=== PATIENT | male | born 1935 | race Caucasian/White ===

== ENCOUNTER → 2017-04-24 | Outpatient (CLI) | payer MEDICARE ==
[~2017-04-24] MED LIST: ASPI-621 PO; CARV12.52 PO; CHOL-29 PO; DABI150C PO; DIGO125T PO; FOLI0.8T2 PO; GLUC500T11 PO; OLME40TA12 PO; SIMV20TA3 PO
== END | disposition home or self-care (01) ==
LOC: CFH 12:44 → EDSTATUS 13:00
PROVIDERS: ATTEND Internal Medicine Cardiovascular Disease
DX: I35.2 Nonrheumatic aortic (valve) stenosis with insufficiency (principal); I48.91 Unspecified atrial fibrillation; I10 Essential (primary) hypertension
CPT/HCPCS: 93306

== ENCOUNTER → 2017-06-01 | Outpatient (CLI) | payer MEDICARE ==
[~2017-06-01] MED LIST changes: +REGADENOSON 0.4 MG/5 ML SYRINGE ONE
== END | disposition home or self-care (01) ==
LOC: CFH 07:55
PROVIDERS: ATTEND Internal Medicine Cardiovascular Disease
DX: I42.0 Dilated cardiomyopathy (principal); I47.2 Ventricular tachycardia; I25.2 Old myocardial infarction; I10 Essential (primary) hypertension; I25.10 Atherosclerotic heart disease of native coronary artery without angina pectoris
CPT/HCPCS: 78452; 93017; A9502; J2785

== ENCOUNTER → 2018-09-09 | Outpatient (CLI) | payer MEDICARE ==
[~2018-09-09] MED LIST changes: -ASPI-621 PO; +ASPI81TA45 PO; -REGADENOSON 0.4 MG/5 ML SYRINGE ONE
== END | disposition home or self-care (01) ==
LOC: CVU 07:36
PROVIDERS: ATTEND Internal Medicine Cardiovascular Disease
DX: I08.8 Other rheumatic multiple valve diseases (principal); I42.0 Dilated cardiomyopathy; I48.0 Paroxysmal atrial fibrillation; I10 Essential (primary) hypertension
CPT/HCPCS: 93306

== ENCOUNTER 2019-07-01 12:45 | Outpatient (CLI) | payer MEDICARE ==
[~2019-07-01 12:45] MED LIST changes: -DIGO125T PO; +DIGO125T85 PO; +SIMV20TA19 PO; -SIMV20TA3 PO
== END 2019-07-01 23:59 | disposition home or self-care (01) ==
LOC: CFH 12:45
PROVIDERS: ATTEND Internal Medicine Cardiovascular Disease
DX: I08.8 Other rheumatic multiple valve diseases (principal); I42.0 Dilated cardiomyopathy; I10 Essential (primary) hypertension
CPT/HCPCS: 93306

== ENCOUNTER → 2019-10-07 | Outpatient (CLI) | payer MEDICARE, OTHER ==
[~2019-10-07] MED LIST changes: +CARV3.122 PO; +FURO-93 PO; +SACU1TAB7 PO; +potassium OTC PO; +vitamin c PO
== END | disposition home or self-care (01) ==
LOC: CFH 10:12
PROVIDERS: ATTEND Internal Medicine Cardiovascular Disease
DX: Z01.810 Encounter for preprocedural cardiovascular examination (principal); I08.3 Combined rheumatic disorders of mitral, aortic and tricuspid valves; R06.02 Shortness of breath; I65.29 Occlusion and stenosis of unspecified carotid artery
CPT/HCPCS: 93306

== ENCOUNTER → 2020-01-01 | Outpatient (CLI) | payer MEDICARE, OTHER | END | disposition home or self-care (01) | LOC: CFH 09:02 | PROVIDERS: ATTEND Internal Medicine Cardiovascular Disease | DX: I08.3 Combined rheumatic disorders of mitral, aortic and tricuspid valves (principal); I11.0 Hypertensive heart disease with heart failure; I50.22 Chronic systolic (congestive) heart failure | CPT/HCPCS: 93306 ==

== ENCOUNTER 2020-02-16 09:00 | Inpatient (IN) | payer MEDICARE, OTHER ==
[~2020-02-16] VITALS: Ht 185.4 cm; Wt 91.8 kg
[2020-02-16 09:38] VITALS: BP 107/73
[2020-02-16] MEDS ORDERED: FURO40TA6 PO (10:13)
[2020-02-16] MEDS: CARVEDILOL 3.125 MG TABLET PO SCH ×2 (13:00→22:40)
[2020-02-16 13:05] VITALS: BP 106/78
[2020-02-16 13:40] LABS: ANION GAP 6 mmol/L (5-15); CHLORIDE 108 mmol/L (98-107)
[2020-02-16 13:45] LABS: CHOL/HDL RATIO 2.5; CHOLESTEROL, TOTAL 137 mg/dL (140-239); CREATININE 1.41 mg/dL (0.7-1.3); FREE T4 (FREE THYROXINE) 1.06 ng/dL (0.76-1.46); HDL CHOL % 40 % (26-37); HDL CHOLESTEROL (DIRECT) 55 mg/dL (40-60); LDL CHOLESTEROL,CALCULATED 70 mg/dL (54-169); LDL/HDL RATIO 1.3 (0.5-3.0); TRIGLYCERIDES 62 mg/dL (50-200); TROPONIN I < 0.015 ng/mL (0.000-0.045); VLDL CHOLESTEROL 12 mg/dL (0-25)
[2020-02-16] MEDS ORDERED: AMIODARONE 200 MG TABLET PO SCH (16:00)
[2020-02-16] MEDS: AMIODARONE 200 MG TABLET PO SCH ×2 (17:28→22:41)
[2020-02-16 18:42] LABS: TROPONIN I < 0.015 ng/mL (0.000-0.045)
[2020-02-16 20:42] VITALS: BP 99/62
[2020-02-16] MEDS: SIMVASTATIN 20 MG TABLET PO SCH (22:40)
[2020-02-16] MEDS: DABIGATRAN 150 MG CAPSULE PO SCH (22:41)
[2020-02-16] MEDS: SACUBITRIL/VALSARTAN 24MG-26MG TAB PO SCH (22:41)
[2020-02-17 00:43] LABS: TROPONIN I < 0.015 ng/mL (0.000-0.045)
[2020-02-17 01:07] VITALS: BP 93/56
[2020-02-17] MEDS: CARVEDILOL 3.125 MG TABLET PO SCH ×2 (05:46→17:11)
[2020-02-17] MEDS: ASPIRIN 81 MG TABLET EC PO SCH (05:49)
[2020-02-17 07:13] VITALS: BP 91/56
[2020-02-17] MEDS: AMIODARONE 200 MG TABLET PO SCH ×3 (10:03→22:18)
[2020-02-17] MEDS: SACUBITRIL/VALSARTAN 24MG-26MG TAB PO SCH ×2 (10:03→22:18)
[2020-02-17] MEDS: FUROSEMIDE 40 MG TABLET PO SCH (10:04)
[2020-02-17] MEDS: DABIGATRAN 150 MG CAPSULE PO SCH ×2 (10:04→22:17)
[2020-02-17] MEDS: FOLIC ACID 1 MG TABLET PO SCH (10:04)
[2020-02-17 13:50] VITALS: BP 96/64
[2020-02-17 19:12] VITALS: BP 91/59
[2020-02-17] MEDS: SIMVASTATIN 20 MG TABLET PO SCH (22:18)
[2020-02-18 00:33] VITALS: BP 95/65
[2020-02-18] MEDS: ASPIRIN 81 MG TABLET EC PO SCH (06:35)
[2020-02-18] MEDS: CARVEDILOL 3.125 MG TABLET PO SCH (06:35)
[2020-02-18 07:08] VITALS: BP 91/61
[2020-02-18] MEDS ORDERED: AMIO200T42 PO (08:46)
[2020-02-18] MEDS: SACUBITRIL/VALSARTAN 24MG-26MG TAB PO SCH (09:36)
[2020-02-18] MEDS: FUROSEMIDE 40 MG TABLET PO SCH (09:36)
[2020-02-18] MEDS: DABIGATRAN 150 MG CAPSULE PO SCH (09:36)
[2020-02-18] MEDS: AMIODARONE 200 MG TABLET PO SCH (09:37)
[2020-02-18] MEDS: FOLIC ACID 1 MG TABLET PO SCH (09:37)
== END 2020-02-18 11:44 | disposition home or self-care (01) | DRG 309 ==
LOC: 5SO 09:18 → DCLOUNGE 02-18 11:38
PROVIDERS: ADMIT Internal Medicine Cardiovascular Disease; ATTEND Internal Medicine Cardiovascular Disease
DX: I48.0 Paroxysmal atrial fibrillation (principal); I50.22 Chronic systolic (congestive) heart failure; I47.2 Ventricular tachycardia; I42.8 Other cardiomyopathies; I34.0 Nonrheumatic mitral (valve) insufficiency; I47.1 Supraventricular tachycardia; E78.5 Hyperlipidemia, unspecified; I49.3 Ventricular premature depolarization; Z79.01 Long term (current) use of anticoagulants; Z87.891 Personal history of nicotine dependence; Z95.4 Presence of other heart-valve replacement; Z79.899 Other long term (current) drug therapy
CPT/HCPCS: 36415; 71046; 80048; 80061; 84439; 84443; 84484; 85014; 85018; 93005; G0378

== ENCOUNTER 2020-03-18 08:31 | Observation (INO) | payer MEDICARE, OTHER ==
[~2020-03-18] VITALS: Ht 185.4 cm; Wt 104.6 kg
[~2020-03-18 08:31] MED LIST changes: +ACETAMINOPHEN 325 MG TABLET PO PRN; +AMIO200T42 PO; +EPHEDRINE 50 MG/ML, 1ML IVPush PRN; +FENTANYL PF 100 MCG/2ML IV PRN; +FURO40TA6 PO; +HYDROmorphone 1 MG/ML, 1ML INJ IVPush PRN; +ONDANSETRON 2MG/ML, 2ML IVPush PRN; +OXYcodone 5 MG/5 ML ORAL.SOL UDC PO PRN; +PLEASE ENTER HEIGHT AND WEIGHT MC SCH; +PROMETHAZINE 25 MG/ML, 1ML IVPush PRN; +hydrALAzine 20 MG/ML, 1ML IV PRN
[2020-03-18 09:04] VITALS: BP 120/76
[2020-03-18] MEDS ORDERED: AMIO200T42 PO (09:12)
[2020-03-18 09:33] LABS: BASOPHILS % (AUTO) 1 % (0-1); EOSINOPHILS % (AUTO) 4 % (1-7); LYMPHOCYTES % (AUTO) 12 % (22-44); MEAN CORPUSCULAR HEMOGLOBIN 31.9 pg (27.5-34.5); MEAN CORPUSCULAR HGB CONC 33.5 g/dL (33.2-36.2); MEAN PLATELET VOLUME 9.1 fL (7.4-10.4); MONOCYTES % (AUTO) 10 % (2-9); NEUTROPHILS % (AUTO) 74 % (42-75); PLATELET COUNT 225 x10^3/uL (130-400); RED BLOOD COUNT 4.67 x10^6/uL (4.38-5.82)
[2020-03-18 09:35] LABS: MD NO
[2020-03-18 09:40] LABS: ANION GAP 6 mmol/L (5-15); CALCIUM 9.2 mg/dL (8.5-10.1); CHLORIDE 114 mmol/L (98-107); CREATININE 1.81 mg/dL (0.7-1.3)
[2020-03-18] MEDS ORDERED: FENTANYL PF 100 MCG/2ML ONE ×3 (10:14→12:03)
[2020-03-18] MEDS ORDERED: MIDAZOLAM 1 MG/ML, 5ML ONE (10:14)
[2020-03-18] MEDS ORDERED: LIDOCAINE 2%, 20ML ONE (10:14)
[2020-03-18] MEDS ORDERED: VANCOMYCIN 500 MG ONE (10:15)
[2020-03-18] MEDS ORDERED: VANCOMYCIN PMX 1GM/200ML 200 ML ONE (10:15)
[2020-03-18] MEDS ORDERED: DEXAMETHASONE 4 MG/ML, 5ML ONE (11:53)
[2020-03-18] MEDS ORDERED: ONDANSETRON 2MG/ML, 2ML ONE (12:03)
[2020-03-18] MEDS ORDERED: PROPOFOL 10 MG/ML, 20ML ONE (12:03)
[2020-03-18] MEDS ORDERED: SUCCINYLCHOLINE 20 MG/ML, 10ML ONE (12:03)
[2020-03-18] MEDS ORDERED: LIDOCAINE-MPF 2% ,5ML ONE (12:11)
[2020-03-18] MEDS ORDERED: EPINEPHRINE 1 MG/ML, 1ML ONE ×3 (12:16→12:42)
[2020-03-18] MEDS ORDERED: PHENYLEPHRINE 10 MG/ML ONE (12:40)
[2020-03-18] MEDS ORDERED: ALBUTEROL HFA 90 MCG/SPRAY ONE (12:53)
[2020-03-18] MEDS ORDERED: HOLD MEDICATION MC PRN (13:00)
[2020-03-18] MEDS ORDERED: ACETAMINOPHEN 325 MG TABLET PO PRN (13:00)
[2020-03-18] MEDS ORDERED: FUROSEMIDE 40 MG TABLET PO PRN (13:00)
[2020-03-18] MEDS: SODIUM CHLORIDE 0.9% 1,000 ML IV SCH ×2 (14:09→15:52)
[2020-03-18 14:26] VITALS: BP 97/65
[2020-03-18] MEDS ORDERED: SIMVASTATIN 20 MG TABLET PO SCH (21:00)
[2020-03-18] MEDS ORDERED: SACUBITRIL/VALSARTAN 24MG-26MG TAB PO SCH (21:00)
[2020-03-18] MEDS ORDERED: VANCOMYCIN PMX 1GM/200ML 200 ML IVPB ONE (22:00)
[2020-03-18 22:51] VITALS: BP 103/68
[2020-03-18] MEDS: SODIUM CHLORIDE FLUSH 10ML SYR IVF SCH (22:56)
[2020-03-19] MEDS: SODIUM CHLORIDE 0.9% 1,000 ML IV SCH ×2 (01:00→09:28)
[2020-03-19 03:13] VITALS: BP 105/69
[2020-03-19 07:10] VITALS: BP 127/92
[2020-03-19] MEDS ORDERED: GLUCOSAMINE HCL PO SCH (09:00)
[2020-03-19] MEDS ORDERED: ASPIRIN 81 MG TABLET EC PO SCH (09:00)
[2020-03-19] MEDS ORDERED: FOLIC ACID 1 MG TABLET PO SCH (09:00)
[2020-03-19] MEDS ORDERED: CHOLECALCIFEROL 1,000 UNIT TABLET PO SCH (09:00)
[2020-03-19] MEDS ORDERED: AMIODARONE 200 MG TABLET PO SCH (09:00)
[2020-03-19] MEDS: SODIUM CHLORIDE FLUSH 10ML SYR IVF SCH (09:28)
[2020-03-19 11:39] VITALS: BP 107/78
== END 2020-03-19 14:09 | disposition home or self-care (01) ==
LOC: CACL 08:31 → ORIP 12:56 → 5SO 14:01 → CACL 15:02 → 5SO 15:21
PROVIDERS: ADMIT Internal Medicine Cardiovascular Disease; ATTEND Internal Medicine Cardiovascular Disease
DX: I42.0 Dilated cardiomyopathy (principal); Z20.828 Contact with and (suspected) exposure to other viral communicable diseases; I25.5 Ischemic cardiomyopathy; I44.7 Left bundle-branch block, unspecified; I11.0 Hypertensive heart disease with heart failure; I50.21 Acute systolic (congestive) heart failure; I47.2 Ventricular tachycardia; I48.0 Paroxysmal atrial fibrillation; I08.0 Rheumatic disorders of both mitral and aortic valves; I49.3 Ventricular premature depolarization; I25.10 Atherosclerotic heart disease of native coronary artery without angina pectoris; Q21.1 Atrial septal defect; F10.10 Alcohol abuse, uncomplicated; Z79.899 Other long term (current) drug therapy; Z79.82 Long term (current) use of aspirin
CPT/HCPCS: 33225; 33249; 36415; 71045; 71046; 80048; 85025; 96365; 96366; C1769; C1779; C1882; C1887; C1892; C1894; C1895; C1900; G0378; J0171; J0330; J1100; J2370; J2405; J2704; J3010; J3370; J3490; Q9967; U0003; J2250

== ENCOUNTER 2020-03-24 15:25 | Inpatient (IN) | payer MEDICARE, OTHER ==
[~2020-03-24] VITALS: Ht 185.4 cm; Wt 99.7 kg
[~2020-03-24 15:25] MED LIST changes: -ACETAMINOPHEN 325 MG TABLET PO PRN; -EPHEDRINE 50 MG/ML, 1ML IVPush PRN; -FENTANYL PF 100 MCG/2ML IV PRN; -HYDROmorphone 1 MG/ML, 1ML INJ IVPush PRN; -ONDANSETRON 2MG/ML, 2ML IVPush PRN; -OXYcodone 5 MG/5 ML ORAL.SOL UDC PO PRN; -PLEASE ENTER HEIGHT AND WEIGHT MC SCH; -PROMETHAZINE 25 MG/ML, 1ML IVPush PRN; -hydrALAzine 20 MG/ML, 1ML IV PRN
--- NOTE | 2020-03-24 15:47 | NUR ---
PT CAME IN CO OF INTERMITTENT CP AND SOB. PT HAD METRONIC CARDIAC PACEMAKER PLACED THIS PAST SUNDAY HERE AT [facility]. PT REPORTS THAT SEEMS TO GET REALLY SOB AND HAS A NEW COUGH SINCE THE PROCEDURE AND THAT HIS CHEST PAIN COMES AND GOES. PT ACCOMPANIED BY . PT CONNECTED TO MONITORING EQUIPMENT. EKG COMPLETE. BANDAGE FROM PROCEDURE IS CLEAN DRY AND INTACT
--- NOTE | 2020-03-24 16:24 | NUR ---
PT RESTING IN [facility]. TAMIKO.
[2020-03-24 16:45] LABS: BASOPHILS % (AUTO) 0 % (0-1); EOSINOPHILS % (AUTO) 3 % (1-7); LYMPHOCYTES % (AUTO) 10 % (22-44); MEAN CORPUSCULAR HEMOGLOBIN 31.1 pg (27.5-34.5); MEAN PLATELET VOLUME 9.3 fL (7.4-10.4); MONOCYTES % (AUTO) 10 % (2-9); NEUTROPHILS % (AUTO) 77 % (42-75); PLATELET COUNT 196 x10^3/uL (130-400); RED BLOOD COUNT 4.61 x10^6/uL (4.38-5.82); RED CELL DISTRIBUTION WIDTH 14.7 % (9.4-14.8)
[2020-03-24 16:54] LABS: MD NO
[2020-03-24 16:57] LABS: ANION GAP 5 mmol/L (5-15); CALCIUM 9.1 mg/dL (8.5-10.1); CHLORIDE 113 mmol/L (98-107)
[2020-03-24] MEDS ORDERED: SODIUM CHLORIDE FLUSH 10ML SYR IVF ONE (17:00)
[2020-03-24 17:02] LABS: CREATININE 1.63 mg/dL (0.7-1.3); TROPONIN I 0.016 ng/mL (0.000-0.045)
[2020-03-24] MEDS ORDERED: FUROSEMIDE 20 MG/2 ML IV ONE (17:30)
[2020-03-24] MEDS ORDERED: FUROSEMIDE 40 MG/4 ML ONE (17:35)
[2020-03-24 19:44] VITALS: BP 115/80
[2020-03-24 20:18] VITALS: BP 115/88
[2020-03-24] MEDS ORDERED: DOCUSATE 100 MG CAPSULE PO PRN (22:00)
[2020-03-24] MEDS ORDERED: ACETAMINOPHEN 325 MG TABLET PO PRN (22:00)
[2020-03-24] MEDS ORDERED: hydrALAzine 20 MG/ML, 1ML IVPush PRN (22:00)
[2020-03-24] MEDS ORDERED: MELATONIN 5 MG TABLET PO PRN (22:00)
[2020-03-24] MEDS ORDERED: LIDODERM 5% PATCH TD PRN (22:00)
[2020-03-24] MEDS: SACUBITRIL HOMEMEDPO SCH (23:00)
[2020-03-24] MEDS: VALSARTAN HOMEMEDPO SCH (23:00)
[2020-03-24] MEDS: DABIGATRAN 150 MG CAPSULE PO SCH (23:20)
[2020-03-24] MEDS: SIMVASTATIN 20 MG TABLET PO SCH (23:20)
[2020-03-25 01:10] VITALS: BP 95/63
[2020-03-25 05:14] LABS: BASOPHILS % (AUTO) 0 % (0-1); EOSINOPHILS % (AUTO) 4 % (1-7); LYMPHOCYTES % (AUTO) 12 % (22-44); MEAN CORPUSCULAR HEMOGLOBIN 31.3 pg (27.5-34.5); MEAN CORPUSCULAR HGB CONC 33.4 g/dL (33.2-36.2); MEAN PLATELET VOLUME 9.5 fL (7.4-10.4); MONOCYTES % (AUTO) 11 % (2-9); NEUTROPHILS % (AUTO) 72 % (42-75); PLATELET COUNT 176 x10^3/uL (130-400); RED BLOOD COUNT 4.49 x10^6/uL (4.38-5.82); RED CELL DISTRIBUTION WIDTH 14.5 % (9.4-14.8)
[2020-03-25 05:22] LABS: MD NO
[2020-03-25 05:35] LABS: ANION GAP 6 mmol/L (5-15); CALCIUM 9.2 mg/dL (8.5-10.1); CHLORIDE 114 mmol/L (98-107)
[2020-03-25] MEDS ORDERED: FUROSEMIDE 40 MG/4 ML IV SCH (07:30)
[2020-03-25 07:45] VITALS: BP 113/79
[2020-03-25] MEDS: FOLIC ACID 1 MG TABLET PO SCH (08:18)
[2020-03-25] MEDS: ASPIRIN 81 MG TABLET EC PO SCH (08:18)
[2020-03-25] MEDS: DABIGATRAN 150 MG CAPSULE PO SCH ×2 (08:18→20:39)
[2020-03-25] MEDS: SACUBITRIL HOMEMEDPO SCH ×2 (08:19→19:52)
[2020-03-25] MEDS: CHOLECALCIFEROL 1,000 UNIT TABLET PO SCH (08:19)
[2020-03-25] MEDS: VALSARTAN HOMEMEDPO SCH ×2 (08:19→19:52)
[2020-03-25] MEDS: AMIODARONE 200 MG TABLET PO SCH (08:19)
[2020-03-25] MEDS ORDERED: GLUCOSAMINE HCL PO SCH (09:00)
[2020-03-25 14:08] VITALS: BP 99/68
[2020-03-25 17:28] LABS: MICROSCOPIC AUTO
[2020-03-25 17:38] LABS: CREATININE,URINE RANDOM 59.4 mg/dL
[2020-03-25 19:44] VITALS: BP 113/78
[2020-03-25] MEDS: BUMETANIDE 1 MG TABLET PO SCH (20:39)
[2020-03-25] MEDS: SIMVASTATIN 20 MG TABLET PO SCH (20:39)
[2020-03-26 02:00] VITALS: BP 108/69
[2020-03-26 05:43] LABS: ANION GAP 5 mmol/L (5-15); CHLORIDE 112 mmol/L (98-107)
[2020-03-26 05:44] LABS: CREATININE 1.75 mg/dL (0.7-1.3)
[2020-03-26] MEDS: DABIGATRAN 150 MG CAPSULE PO SCH ×2 (07:54→21:52)
[2020-03-26] MEDS: ASPIRIN 81 MG TABLET EC PO SCH (07:54)
[2020-03-26] MEDS: BUMETANIDE 1 MG TABLET PO SCH ×2 (07:54→21:54)
[2020-03-26] MEDS: AMIODARONE 200 MG TABLET PO SCH (07:54)
[2020-03-26] MEDS: FOLIC ACID 1 MG TABLET PO SCH (07:54)
[2020-03-26] MEDS: CHOLECALCIFEROL 1,000 UNIT TABLET PO SCH (07:54)
[2020-03-26 08:40] VITALS: BP 111/80
[2020-03-26] MEDS: SACUBITRIL HOMEMEDPO SCH ×2 (09:07→21:08)
[2020-03-26] MEDS: VALSARTAN HOMEMEDPO SCH ×2 (09:07→21:08)
[2020-03-26 15:20] VITALS: BP 104/73
[2020-03-26 20:11] VITALS: BP 109/77
[2020-03-26] MEDS: SIMVASTATIN 20 MG TABLET PO SCH (21:52)
[2020-03-27 01:52] VITALS: BP 112/76
[2020-03-27 05:23] LABS: CHLORIDE 111 mmol/L (98-107)
[2020-03-27 05:34] LABS: ANION GAP 3 mmol/L (5-15); CREATININE 1.74 mg/dL (0.7-1.3)
[2020-03-27 08:05] VITALS: BP 117/83
[2020-03-27] MEDS: VALSARTAN HOMEMEDPO SCH (09:00)
[2020-03-27] MEDS: SACUBITRIL HOMEMEDPO SCH (09:00)
[2020-03-27] MEDS: FOLIC ACID 1 MG TABLET PO SCH (09:38)
[2020-03-27] MEDS: BUMETANIDE 1 MG TABLET PO SCH ×2 (09:39→21:41)
[2020-03-27] MEDS: CHOLECALCIFEROL 1,000 UNIT TABLET PO SCH (09:39)
[2020-03-27] MEDS: ASPIRIN 81 MG TABLET EC PO SCH (09:39)
[2020-03-27] MEDS: AMIODARONE 200 MG TABLET PO SCH (09:40)
[2020-03-27] MEDS: DABIGATRAN 150 MG CAPSULE PO SCH ×2 (09:40→21:41)
[2020-03-27] MEDS ORDERED: FUROSEMIDE 40 MG/4 ML IV ONE (10:00)
[2020-03-27] MEDS ORDERED: POTASSIUM CHLORIDE 20 MEQ TAB.ER.PRT PO ONE (10:00)
[2020-03-27 11:28] VITALS: BP 104/74
[2020-03-27 12:47] VITALS: BP 94/71
[2020-03-27] MEDS: CARVEDILOL 3.125 MG TABLET PO SCH (18:11)
[2020-03-27 18:19] VITALS: BP 117/81
[2020-03-27 20:00] VITALS: BP 102/72
[2020-03-27] MEDS: SIMVASTATIN 20 MG TABLET PO SCH (21:41)
[2020-03-28 01:12] VITALS: BP 110/76
[2020-03-28 05:20] LABS: ANION GAP 4 mmol/L (5-15); CHLORIDE 111 mmol/L (98-107); CREATININE 1.61 mg/dL (0.7-1.3)
[2020-03-28] MEDS: CARVEDILOL 3.125 MG TABLET PO SCH (06:02)
[2020-03-28 07:41] VITALS: BP 99/69
[2020-03-28] MEDS ORDERED: POTASSIUM CHLORIDE 20 MEQ TAB.ER.PRT PO ONE (08:00)
[2020-03-28] MEDS ORDERED: FUROSEMIDE 40 MG/4 ML IV ONE (08:00)
[2020-03-28] MEDS: DABIGATRAN 150 MG CAPSULE PO SCH (08:26)
[2020-03-28] MEDS: BUMETANIDE 1 MG TABLET PO SCH (08:26)
[2020-03-28] MEDS: AMIODARONE 200 MG TABLET PO SCH (08:26)
[2020-03-28] MEDS: FOLIC ACID 1 MG TABLET PO SCH (08:26)
[2020-03-28] MEDS: ASPIRIN 81 MG TABLET EC PO SCH (08:26)
[2020-03-28] MEDS: CHOLECALCIFEROL 1,000 UNIT TABLET PO SCH (08:26)
[2020-03-28] MEDS ORDERED: CARV3.1212 PO (11:17)
[2020-03-28] MEDS ORDERED: POTA20TA91 PO (11:17)
[2020-03-28] MEDS ORDERED: FURO40TA6 PO (11:17)
== END 2020-03-28 12:05 | disposition home or self-care (01) | DRG 682 ==
LOC: ED 16:31 → EDIP 17:25 → 5SO 18:49 → DCLOUNGE 03-28 11:55
PROVIDERS: ADMIT Family Medicine; ATTEND Internal Medicine
DX: N17.9 Acute kidney failure, unspecified (principal); I50.23 Acute on chronic systolic (congestive) heart failure; I13.0 Hypertensive heart and chronic kidney disease with heart failure and stage 1 through stage 4 chronic kidney disease, or unspecified chronic kidney disease; D68.69 Other thrombophilia; I42.8 Other cardiomyopathies; E78.5 Hyperlipidemia, unspecified; I44.7 Left bundle-branch block, unspecified; N18.9 Chronic kidney disease, unspecified; Z66 Do not resuscitate; I50.82 Biventricular heart failure; I48.0 Paroxysmal atrial fibrillation; Z95.810 Presence of automatic (implantable) cardiac defibrillator; Z79.01 Long term (current) use of anticoagulants; Z88.0 Allergy status to penicillin; Z82.49 Family history of ischemic heart disease and other diseases of the circulatory system; Z91.19 Patient's noncompliance with other medical treatment and regimen; Z79.899 Other long term (current) drug therapy
CPT/HCPCS: 36415; 71045; 80048; 81001; 82040; 82570; 83735; 83880; 84100; 84156; 84300; 84443; 84484; 84540; 85025; 93005; 93306; G0378; J1940

== ENCOUNTER 2020-08-07 04:45 | Inpatient (IN) | payer MEDICARE, OTHER ==
[~2020-08-07] VITALS: Ht 185.4 cm; Wt 91.0 kg
[~2020-08-07 04:45] MED LIST changes: +CARV3.1212 PO; -FOLI0.8T2 PO; +FOLI0.8T5 PO; +POTA20TA91 PO
--- NOTE | 2020-08-07 05:27 | NUR ---
piv placed in pt, labs drawn, pt placed on all monitors, inital ekg done, cxr at bedside.
[2020-08-07 05:35] LABS: BASOPHILS % (AUTO) 0 % (0-1); EOSINOPHILS % (AUTO) 0 % (1-7); LYMPHOCYTES % (AUTO) 4 % (22-44); MEAN CORPUSCULAR HEMOGLOBIN 28.3 pg (27.5-34.5); MEAN CORPUSCULAR HGB CONC 32.7 g/dL (33.2-36.2); MEAN PLATELET VOLUME 8.7 fL (7.4-10.4); MONOCYTES % (AUTO) 10 % (2-9); NEUTROPHILS % (AUTO) 86 % (42-75); PLATELET COUNT 218 x10^3/uL (130-400); RED BLOOD COUNT 4.28 x10^6/uL (4.38-5.82); RED CELL DISTRIBUTION WIDTH 17.7 % (9.4-14.8)
[2020-08-07 05:36] LABS: MD NO
[2020-08-07 05:40] LABS: ALANINE AMINOTRANSFERASE 27 U/L (12-78); ALBUMIN 3.1 g/dL (3.4-5.0); ANION GAP 7 mmol/L (5-15); CHLORIDE 102 mmol/L (98-107); CREATININE 1.96 mg/dL (0.7-1.3)
[2020-08-07 05:44] LABS: ALKALINE PHOSPHATASE 88 U/L (45-117); BILIRUBIN,TOTAL 1.2 mg/dL (0.2-1.0); TROPONIN I < 0.015 ng/mL (0.000-0.045)
--- NOTE | 2020-08-07 05:55 | NUR ---
pt states bp is chronically low. bp is 83/56 and per pt that is normal. erp aware. no other needs at this time
--- NOTE | 2020-08-07 06:42 | NUR ---
per dr. molina, hold the lasix at this time due to low bp
--- NOTE | 2020-08-07 06:43 | NUR ---
(jessica)- home number [phone] cell- [phone] requests to be notified when pt gets a room
--- NOTE | 2020-08-07 06:55 | NUR ---
REPORT GIVEN TO AVA SPEARS
[2020-08-07] MEDS ORDERED: POTASSIUM CHLORIDE 20 MEQ TAB.ER.PRT PO ONE ×2 (07:00→10:30)
[2020-08-07] MEDS ORDERED: FUROSEMIDE 20 MG/2 ML IV ONE (07:00)
--- NOTE | 2020-08-07 07:14 | NUR ---
report taken from AVA Schumacher, this RN assuming care. lasix held by previous RN d/t hypotension, per MD request. per pt, he is hypotensive at baseline. pt awake, alert, resps even and unlabored. no complaint at this time.
--- NOTE | 2020-08-07 08:00 | NUR ---
pt resting on gurorono, a&o, resps even and unlabored. pt has paced rhythm, underlying normal sinus with occaisional pvcs. pt reports 3/10 chest pain, unchanged from original location. pt reports he has not taken home meds or aspirin today.
[2020-08-07] MEDS ORDERED: CARVEDILOL 3.125 MG TABLET PO SCH (08:30)
[2020-08-07] MEDS ORDERED: ONDANSETRON 2MG/ML, 2ML IVPush PRN (08:30)
[2020-08-07] MEDS ORDERED: POLYETHYLENE GLYCOL 17 GM PACKET PO PRN (08:30)
[2020-08-07] MEDS ORDERED: PHARMACY MAY ADJ FOR RENAL FX MC PRN (08:30)
[2020-08-07] MEDS ORDERED: DOCUSATE 100 MG CAPSULE PO PRN (08:30)
[2020-08-07] MEDS ORDERED: ACETAMINOPHEN 325 MG TABLET PO PRN (08:30)
[2020-08-07] MEDS ORDERED: FUROSEMIDE 40 MG TABLET PO PRN (08:30)
[2020-08-07] MEDS ORDERED: IVAB5TAB PO (08:39)
[2020-08-07] MEDS ORDERED: glucosamine PO (08:39)
[2020-08-07] MEDS ORDERED: vitamin c PO (08:39)
[2020-08-07] MEDS ORDERED: SACU1TAB PO-COUM (08:39)
[2020-08-07] MEDS ORDERED: BUME2TAB3 PO (08:39)
[2020-08-07] MEDS ORDERED: MULT-658 PO (08:39)
--- NOTE | 2020-08-07 08:47 | NUR ---
med rec updated, changes reviewed with MD Wilson who is admitting. vs and trend reviewed with MD Wilson, aware pt is hypotensive, stable. MD notified pt's chest pain is 3/10, MD instructed RN to admin pt's home dose of 81 mg aspirin only, no additional orders given. MD Stewartu at bedside at this time updating pt with admit poc, pt agreeable to admit.
--- NOTE | 2020-08-07 08:57 | NUR ---
REPORT GIVEN TO AVA BYNUM PT AWAITING TRANSPORT TO ROOM 511 AT THIS TIME.
[2020-08-07] MEDS ORDERED: APIXABAN 5 MG TABLET PO SCH (09:00)
[2020-08-07] MEDS ORDERED: ASPIRIN 81 MG TABLET CHEW ONE (09:04)
--- NOTE | 2020-08-07 09:06 | NUR ---
REPORT GIVEN TO AVA RICHARDSON WHO IS ASSUMING CARE.
[2020-08-07] MEDS ORDERED: ASPIRIN 81 MG TABLET EC ONE (09:11)
[2020-08-07] MEDS: ASPIRIN 81 MG TABLET EC PO SCH ×2 (09:12→10:40)
[2020-08-07 09:30] VITALS: BP 98/58
[2020-08-07] MEDS ORDERED: POTASSIUM CHLORIDE 20 MEQ TAB.ER.PRT ONE (10:38)
[2020-08-07] MEDS: SACUBITRIL/VALSARTAN 24MG-26MG TAB PO SCH ×2 (10:40→21:05)
[2020-08-07] MEDS: AMIODARONE 200 MG TABLET PO SCH (10:40)
[2020-08-07] MEDS: BUMETANIDE 1 MG TABLET PO SCH (10:41)
[2020-08-07] MEDS ORDERED: APIXABAN 5 MG TABLET ONE (10:45)
[2020-08-07] MEDS: IVABRADINE HCL PO SCH ×2 (11:12→21:05)
[2020-08-07] MEDS: APIXABAN 2.5 MG TABLET PO SCH ×2 (11:14→21:04)
[2020-08-07 11:42] LABS: TROPONIN I < 0.015 ng/mL (0.000-0.045)
[2020-08-07 14:00] VITALS: BP 90/61
[2020-08-07 14:41] LABS: MICROSCOPIC NOT IND
[2020-08-07] MEDS ORDERED: BUMETANIDE 1 MG TABLET PO ONE (15:00)
[2020-08-07 17:00] LABS: TROPONIN I < 0.015 ng/mL (0.000-0.045)
[2020-08-07] MEDS ORDERED: SIMVASTATIN 20 MG TABLET PO SCH (21:00)
[2020-08-07 21:14] VITALS: BP 93/62
[2020-08-08 01:51] VITALS: BP 99/65
[2020-08-08 05:44] LABS: BASOPHILS % (AUTO) 0 % (0-1); EOSINOPHILS % (AUTO) 0 % (1-7); LYMPHOCYTES % (AUTO) 7 % (22-44); MEAN CORPUSCULAR HEMOGLOBIN 28.7 pg (27.5-34.5); MEAN CORPUSCULAR HGB CONC 33.5 g/dL (33.2-36.2); MEAN PLATELET VOLUME 9.3 fL (7.4-10.4); MONOCYTES % (AUTO) 15 % (2-9); NEUTROPHILS % (AUTO) 78 % (42-75); PLATELET COUNT 191 x10^3/uL (130-400); RED BLOOD COUNT 3.92 x10^6/uL (4.38-5.82); RED CELL DISTRIBUTION WIDTH 17.5 % (9.4-14.8)
[2020-08-08 05:45] LABS: MD NO
[2020-08-08 05:58] LABS: ALANINE AMINOTRANSFERASE 23 U/L (12-78); ALBUMIN 2.7 g/dL (3.4-5.0); ANION GAP 8 mmol/L (5-15); CALCIUM 8.9 mg/dL (8.5-10.1); CHLORIDE 105 mmol/L (98-107); CREATININE 1.83 mg/dL (0.7-1.3)
[2020-08-08 06:00] LABS: ALKALINE PHOSPHATASE 76 U/L (45-117); BILIRUBIN,TOTAL 1.2 mg/dL (0.2-1.0); TOTAL PROTEIN 6.4 g/dL (6.4-8.2)
[2020-08-08 07:47] VITALS: BP 91/62
[2020-08-08] MEDS ORDERED: POTASSIUM CHLORIDE 20 MEQ TAB.ER.PRT PO SCH (08:00)
[2020-08-08] MEDS: IVABRADINE HCL PO SCH (09:00)
[2020-08-08 09:40] VITALS: BP 93/59
[2020-08-08] MEDS: BUMETANIDE 1 MG TABLET PO SCH (09:42)
[2020-08-08] MEDS: APIXABAN 2.5 MG TABLET PO SCH (09:43)
[2020-08-08] MEDS: SACUBITRIL/VALSARTAN 24MG-26MG TAB PO SCH (09:43)
[2020-08-08] MEDS ORDERED: SACU1TAB PO-COUM (11:00)
[2020-08-08] MEDS ORDERED: KETOROLAC 30 MG/1 ML IVPush ONE (11:00)
[2020-08-08] MEDS ORDERED: APIX2.5T PO (11:00)
[2020-08-08] MEDS ORDERED: COLCHICINE 0.6 MG CAPSULE PO SCH (11:00)
[2020-08-08] MEDS ORDERED: COLC0.6C3 PO (11:01)
[2020-08-08 11:44] VITALS: BP 97/70
[2020-08-08] MEDS: AMIODARONE 200 MG TABLET PO SCH (11:46)
[2020-08-08 12:42] VITALS: BP 96/70
== END 2020-08-08 13:30 | disposition home health service (06) | DRG 314 ==
LOC: SUATTDRO 06:39 → ED 07:28 → EDIP 08:17 → 5SO 09:38 → DCLOUNGE 08-08 13:23
PROVIDERS: ADMIT Internal Medicine; ATTEND Internal Medicine
DX: I30.9 Acute pericarditis, unspecified (principal); N17.0 Acute kidney failure with tubular necrosis; I50.43 Acute on chronic combined systolic (congestive) and diastolic (congestive) heart failure; I42.0 Dilated cardiomyopathy; D68.69 Other thrombophilia; I13.0 Hypertensive heart and chronic kidney disease with heart failure and stage 1 through stage 4 chronic kidney disease, or unspecified chronic kidney disease; Z66 Do not resuscitate; I48.0 Paroxysmal atrial fibrillation; I77.810 Thoracic aortic ectasia; I27.20 Pulmonary hypertension, unspecified; E78.5 Hyperlipidemia, unspecified; D72.829 Elevated white blood cell count, unspecified; D63.8 Anemia in other chronic diseases classified elsewhere; E88.09 Other disorders of plasma-protein metabolism, not elsewhere classified; I08.3 Combined rheumatic disorders of mitral, aortic and tricuspid valves; I25.10 Atherosclerotic heart disease of native coronary artery without angina pectoris; N18.9 Chronic kidney disease, unspecified; Z95.810 Presence of automatic (implantable) cardiac defibrillator; Z88.0 Allergy status to penicillin; Z82.49 Family history of ischemic heart disease and other diseases of the circulatory system; Z79.899 Other long term (current) drug therapy
CPT/HCPCS: 36415; 71045; 80053; 81003; 83880; 84443; 84484; 85025; 93005; 93306; G0378; J1885